=== PATIENT | female | born 1930 | race Caucasian/White ===

== ENCOUNTER 2017-05-13 16:25 | Inpatient (IN) ==
[2017-05-13] MEDS ORDERED: SODIUM CHLORIDE 0.9% 500 ML IV STA (17:30)
--- NOTE | 2017-05-13 17:53 | Emergency Department Note ---
Emma Boswell Mantricia, am scribing for, and in the presence of, Tj Gama MD 17:52. Lanette Boswell Phillip K, MD, personally performed the services described in this documentation, ascribed by Isabella Carter in my presence, and it is both accurate and complete [id number] . Arrival - Arrival ED Nursing Triage Note: Family states that pt has been altered for the past 3-4 months. Family states that the pt has recurring UTI. Family states that the pt is normally alert minus the past 3-4 months. Mode of Arrival: Stretcher Limitations: No Limitations Source: Patient - History of Present Illness Onset (ago): day(s) Consistency: constant <Tj Gama - Last Filed: 05/13/17 17:53> <Srini Aviles - Last Filed: 05/13/17 19:56> - Arrival Chief Complaint: Altered Mental Status Stated Complaint: Altered Mental Status Time Seen by Provider: 05/13/17 17:16 - History of Present Illness HPI Narrative: Pt is an 86 y/o white female arriving to ED by EMS from [facility] for evaluation of AMS that onset about 3-months ago but has worsened within the last week. Family reports that since UTI, pt has been almost nonresponsive and sleeping "all day". Family also reports that pt is not able to finish her sentences before falling asleep again. Because of pt's recent confusion, she was taken off most of her medications. Pt has also experiencing lowe blood pressure. 2 days ago pt's blood pressure was 90/40. At time of consult, pt's blood pressure is 135/42. Pt had a MRI in March but no signs of CVA. No other complaints were reported to ED. (Isabella Carter) Pt is an 86 y/o white female arriving to ED by EMS from [facility] for evaluation of AMS that onset about 3-months ago but has worsened within the last week. Family reports that since UTI, pt has been almost nonresponsive and sleeping "all day". Family also reports that pt is not able to finish her sentences before falling asleep again. Because of pt's recent confusion, she was taken off most of her medications. Pt has also experiencing lowe blood pressure. 2 days ago pt's blood pressure was 90/40. At time of consult, pt's blood pressure is 135/42. Pt had a MRI in March but no signs of CVA. No other complaints were reported to ED. (Tj Gama) Allergies/Adverse Reactions: Allergies Allergy/AdvReac Type Severity Reaction Status Date / Time lidocaine Allergy Unknown Unknown/Unable Verified 05/13/17 17:54 to obtain Penicillins Allergy Unknown Unknown/Unable Verified 05/13/17 17:54 to obtain acetaminophen [From Tylenol] Allergy Unknown/Unable Verified 05/13/17 17:54 to obtain azithromycin [From Zithromax] Allergy Unknown/Unable Verified 05/13/17 17:54 to obtain cephalexin [From Keflex] Allergy Unknown/Unable Verified 05/13/17 17:54 to obtain ciprofloxacin [From Cipro] Allergy Unknown/Unable Verified 05/13/17 17:54 to obtain diazepam [From Valium] Allergy Unknown/Unable Verified 05/13/17 17:54 to obtain doxycycline Allergy Unknown/Unable Verified 05/13/17 17:54 to obtain famotidine [From Pepcid] Allergy Unknown/Unable Verified 05/13/17 17:54 to obtain fexofenadine [From Twyla] Allergy Unknown/Unable Verified 05/13/17 17:54 to obtain Iodinated Contrast Media - Allergy Unknown/Unable Verified 05/13/17 17:54 Oral and to obtain latex Allergy Unknown/Unable Verified 05/13/17 17:54 to obtain Peanut Butter Allergy Unknown/Unable Verified 05/13/17 17:54 to obtain Psyllium [From Konsyl] Allergy Unknown/Unable Verified 05/13/17 17:54 to obtain scopolamine Allergy Unknown/Unable Verified 05/13/17 17:54 to obtain Sulfa (Sulfonamide Allergy Unknown/Unable Verified 05/13/17 17:54 Antibiotics) to obtain sulfamethoxazole Allergy Unknown/Unable Verified 05/13/17 17:54 [From Bactrim] to obtain tramadol Allergy Unknown/Unable Verified 05/13/17 17:54 to obtain trimethoprim [From Bactrim] Allergy Unknown/Unable Verified 05/13/17 17:54 to obtain tanafed dp Allergy Unknown Unknown/Unable Uncoded 05/13/17 17:54 to obtain arthritis pain relief Allergy Unknown/Unable Uncoded 05/13/17 17:54 to obtain Home Medications: Home Medications Medication Instructions Recorded Confirmed Type Ascorbic Acid 500 mg PO DAILY 05/13/17 05/13/17 History Aspirin Chew Tab 81 mg PO DAILY 05/13/17 05/13/17 History Benzocaine/Menthol [Chloraseptic 1 lozenge PO Q2H PRN 05/13/17 05/13/17 History Lozenge] Cholecalciferol (Vitamin D3) 5,000 unit PO DAILY 05/13/17 05/13/17 History [Vitamin D3] Cyanocobalamin Tab [Vitamin B12 500 mcg PO DAILY 05/13/17 05/13/17 History Tab] Docusate Sodium 100 mg PO DAILY 05/13/17 05/13/17 History Donepezil HCl 5 mg PO BEDTIME 05/13/17 05/13/17 History Ferrous Sulfate Tab [Feosol 325 mg PO DAILY 05/13/17 05/13/17 History Original Tab] Ibuprofen [Children's Ibuprofen] 20 ml PO Q6H PRN 05/13/17 05/13/17 History Lactobacillus Acidophilus 3 mg PO DAILY 05/13/17 05/13/17 History [Probiotic Acidophilus] Lactulose 20 gm PO Q3D 05/13/17 05/13/17 History Levothyroxine Tab [Synthroid Tab] 25 mcg PO DAILY 05/13/17 05/13/17 History Promethazine HCl 25 mg PO Q6H PRN 05/13/17 05/13/17 History Simethicone [Gas Relief] 180 mg PO Q12H PRN 05/13/17 05/13/17 History Review of System - Review of System ROS unobtainable: due to mental status 12 point system: reviewed and no additional remarkable complaints except as stated <Tj Gama - Last Filed: 05/13/17 17:53> Medical,Surgical,& Family Hx - Medical History Cardio: History of: Hypertension Psychological: History of: Depression Endocrine: History of: Diabetes Mellitus (NIDDM), Thyroid Disorder Genitourinary: History of: Recurring Urinary Tract Infections Musculoskeletal: History of: Osteoporosis - Social History Smoking Status: Never smoker Frequency of Alcohol Use: None Type of Drug Use: None <Tj Gama - Last Filed: 05/13/17 17:53> Exam - General Exam limited due to: other (AMS) General appearance: lethargic - Head Head exam: Present: atraumatic, normocephalic, normal inspection - Eye Eye exam: Present: normal appearance, PERRL (small but reactive), EOMI - ENT ENT exam: Present: normal exam, normal oropharynx, mucous membranes dry, TM's normal bilaterally, normal external ear exam - Neck Neck exam: Present: normal inspection, full ROM, trachea midline. Absent: tenderness - Chest Chest inspection: Present: normal inspection, symmetric chest wall rise. Absent : tenderness - Respiratory Respiratory exam: Present: normal lung sounds bilaterally - Cardiovascular Cardiovascular exam: Present: regular rate, normal rhythm, normal heart sounds - Abdominal Exam Abdominal exam: Present: soft, tenderness (left sided), normal bowel sounds. Absent: distention, guarding, rebound - Extremities Exam Extremities exam: Present: normal inspection, full ROM, normal capillary refill. Absent: tenderness, pedal edema - Back Exam Back exam: Present: normal inspection, full ROM. Absent: tenderness - Neurological Exam Neurological exam: Present: alert, oriented X3, CN II-XII intact, normal gait, reflexes normal - Psychiatric Psychiatric exam: Present: normal affect, normal mood - Skin Skin exam: Present: warm, dry, intact, normal color <Tj Gama - Last Filed: 05/13/17 17:53> Vital Signs: Vital Signs Temperature 95.6 F L 05/13/17 16:25 Pulse Rate 78 05/13/17 19:00 Respiratory Rate 13 05/13/17 19:00 Blood Pressure 127/59 05/13/17 19:00 O2 Sat by Pulse Oximetry 100 05/13/17 19:00 Course <Tj Gama - Last Filed: 05/13/17 17:53> - Consultations Time: 19:43 <Srini Aviles - Last Filed: 05/13/17 19:56> - Consultations Consultation #1: Dr. Carlton Tijerina will come evaluate the patient for the admission to the hospitalist service. (Srini Aviles) Results <Tj Gama - Last Filed: 05/13/17 17:53> - Labs CBC & BMP: 05/13/17 18:40 05/13/17 18:40 Lab Results: I have reviewed the patients labs <Srini Aviles - Last Filed: 05/13/17 19:56> - Labs Labs: Lab Results WBC 9.0 T/CUMM (4-12) 05/13/17 18:40 RBC 3.64 MC/CUMM (3.8-5.5) L 05/13/17 18:40 Hgb 10.3 GM/DL (12.0-16.0) L 05/13/17 18:40 Hct 30.4 VOL% (35.7-47.0) L 05/13/17 18:40 MCV 83.5 FL (87-102) L 05/13/17 18:40 MCH 28 PG (27-34) 05/13/17 18:40 MCHC 33.9 GM/DL (32-36) 05/13/17 18:40 RDW 16.2 % (9.3-17.3) 05/13/17 18:40 Plt Count 151 T/CUMM (130-400) 05/13/17 18:40 MPV 8.5 FL (9.6-12.0) L 05/13/17 18:40 Neut % (Auto) 83.6 % (38.7-73.9) H 05/13/17 18:40 Lymph % (Auto) 4.5 % (21.3-54.2) L 05/13/17 18:40 Bureau % (Auto) 10.4 % (1.7-12.7) 05/13/17 18:40 Eos % (Auto) 1.0 % (0.00-10.9) 05/13/17 18:40 Baso % (Auto) 0.1 % (0.0-0.8) 05/13/17 18:40 Neut # (Auto) 7.5 10*3/uL (1.4-7.4) H 05/13/17 18:40 Lymph # (Auto) 0.4 10*3/uL (1.4-4.0) L 05/13/17 18:40 Bureau # (Auto) 0.9 10*3/uL (0.11-0.8) H 05/13/17 18:40 Eos # (Auto) 0.1 10*3/uL (0.0-0.87) 05/13/17 18:40 Baso # (Auto) 0.0 10*3/uL (0.0-0.2) 05/13/17 18:40 Total Counted 100 05/13/17 18:40 Immature Gran % 0.4 % 05/13/17 18:40 Nucleated RBC % 0.0 /100WBC 05/13/17 18:40 Immature Gran # 0.04 # 05/13/17 18:40 Segmented Neutrophils 87 % (50-85) H 05/13/17 18:40 Band Neutrophils 1 % (0-10) 05/13/17 18:40 Lymphocytes 5 % (20-55) L 05/13/17 18:40 Monocytes 5 % (2-15) 05/13/17 18:40 Eosinophils 1 % (0-10) 05/13/17 18:40 Basophils 1.0 % (0.0-0.8) H 05/13/17 18:40 Nucleated RBCs # 0.00 10*3/uL 05/13/17 18:40 Platelet Estimate Adequate 05/13/17 18:40 Robbins Cells 1+ 05/13/17 18:40 Schistocytes 1+ 05/13/17 18:40 Sodium 139 MMOL/L (136-145) 05/13/17 18:40 Potassium 5.0 MMOL/L (3.5-5.1) 05/13/17 18:40 Chloride 117 MMOL/L (98-107) H 05/13/17 18:40 Carbon Dioxide 9 MMOL/L (21-32) L 05/13/17 18:40 Anion Gap 18.0 MMOL/L (5.0-15.0) H 05/13/17 18:40 BUN 93 MG/DL (7-18) H 05/13/17 18:40 Creatinine 2.20 MG/DL (0.55-1.02) H 05/13/17 18:40 GFR Calculation 21 ML/MIN 05/13/17 18:40 BUN/Creatinine Ratio 42.00 RATIO (6.00-20.00) H 05/13/17 18:40 Glucose 81 MG/DL (74-106) 05/13/17 18:40 Calculated Osmolality 304.5 MOS/KG (273-304) H 05/13/17 18:40 Calcium 9.1 MG/DL (8.5-10.1) 05/13/17 18:40 Magnesium 2.7 MG/DL (1.8-2.4) H 05/13/17 18:40 Total Bilirubin < 0.39 MG/DL (0.2-1.0) 05/13/17 18:40 AST 215 U/L (0-37) H 05/13/17 18:40 ALT 552 U/L (13-56) H 05/13/17 18:40 Alkaline Phosphatase 212 U/L (45-117) H 05/13/17 18:40 Troponin I < 0.015 NG/ML (0.00-0.045) 05/13/17 18:40 Total Protein 6.5 G/DL (6.4-8.3) 05/13/17 18:40 Albumin 3.3 G/DL (3.4-5.0) L 05/13/17 18:40 Globulin 3.2 G/DL (2.3-3.5) 05/13/17 18:40 Albumin/Globulin Ratio 1.0 RATIO (1.1-2.2) L 05/13/17 18:40 Urine Color Rayna (Yellow) 05/13/17 18:40 Urine Appearance Cloudy (Clear) 05/13/17 18:40 Urine pH 8.0 (4.5-8.0) 05/13/17 18:40 Ur Specific [place] 1.010 (1.001-1.035) 05/13/17 18:40 Urine Protein 100 MG/DL 05/13/17 18:40 Urine Glucose (UA) Negative mg/dL (Negative) 05/13/17 18:40 Urine Ketones Negative mg/dL (Negative) 05/13/17 18:40 Urine Blood Moderate mg/dL (Negative) 05/13/17 18:40 Urine Nitrate Positive (Negative) H 05/13/17 18:40 Urine Bilirubin Negative mg/dL (Negative) 05/13/17 18:40 Urine Urobilinogen < 2.0 EU/DL (0.2-1.0) H 05/13/17 18:40 Urine Leukocytes Large Jonny/ul (Negative) H 05/13/17 18:40 Urine RBC 319 /HPF (0-4) 05/13/17 18:40 Urine WBC 355 /HPF (0-6) 05/13/17 18:40 Urine WBC Clumps Many /HPF (<1) 05/13/17 18:40 Urine Bacteria Many /HPF (Few) 05/13/17 18:40 Urine Mucus Occasional /LPF (Occasional) 05/13/17 18:40 Ur Culture Indicated? Results to follow 05/13/17 18:40 Urine Opiates Screen Negative (Negative) 05/13/17 18:40 Ur Barbiturates Screen Negative (Negative) 05/13/17 18:40 Ur Phencyclidine Scrn Negative (Negative) 05/13/17 18:40 U Amphetamine/Methamph Negative (Negative) 05/13/17 18:40 U Benzodiazepines Scrn Negative (Negative) 05/13/17 18:40 U Cocaine Metab Screen Negative (Negative) 05/13/17 18:40 U Cannabinoids Screen Negative (Negative) 05/13/17 18:40 (Srini Aviles) Disposition <Tj Gama - Last Filed: 05/13/17 17:53> Case discussed with: patient, patient's family Time of Disposition: 19:56 <Srini Aviles - Last Filed: 05/13/17 19:56> Clinical Impression: UTI (urinary tract infection), Moderate dehydration, Altered mental status Disposition: Still a Patient Condition: Stable Instructions: Altered Mental Status (ED)
--- NOTE | 2017-05-13 18:34 | XRay Report ---
XR chest 1V portable Indication: Altered mental status. Chest one view: No comparison. Heart size is normal. Aorta is tortuous. Mediastinal contours unremarkable. Diffusely coarsened interstitial lung markings noted with central scarring and some scattered granulomata. However, no discrete infiltrate is seen. Pleural spaces are clear. Surgical clips right axilla. Impression: Senile lung changes. Scattered calcified granulomata. No acute cardiopulmonary disease. PROCEDURE INTERPRETED AT [facility] DEPARTMENT OF RADIOLOGY Final Report Signed by: Carlton Valenzuela M.D.
[2017-05-13 18:47] LABS: Basophils % 0.1 % (0.0-0.8); Eosinophils # 0.1 10*3/uL (0.0-0.87); Hematocrit 30.4 VOL% (35.7-47.0); Hemoglobin 10.3 GM/DL (12.0-16.0); Immature Granulocytes % 0.4 %; Immature Granulocytes Absolute 0.04 #; Lymphocytes # 0.4 10*3/uL (1.4-4.0); Lymphocytes % 4.5 % (21.3-54.2); Mean Corpuscular HGB Conc 33.9 GM/DL (32-36); Mean Corpuscular Hemoglobin 28 PG (27-34); Mean Corpuscular Volume 83.5 FL (87-102); Mean Platelet Volume 8.5 FL (9.6-12.0); Monocytes # 0.9 10*3/uL (0.11-0.8); Monocytes % 10.4 % (1.7-12.7); Neutrophils # 7.5 10*3/uL (1.4-7.4); Neutrophils % 83.6 % (38.7-73.9); Platelet Count 151 T/CUMM (130-400); Red Blood Count 3.64 MC/CUMM (3.8-5.5); Red Cell Distribution Width 16.2 % (9.3-17.3)
[2017-05-13 19:07] LABS: Band Neutrophils 1 % (0-10); Eosinophils 1 % (0-10); Lymphocytes 5 % (20-55); Segmented Neutrophils 87 % (50-85); Total Cells Counted 100
[2017-05-13 19:09] LABS: Burr Cells 1+; Platelet Estimate Adequate; Schistocytes 1+
[2017-05-13 19:15] LABS: Apearance,Urine CLOUDY (Clear); Bacteria,Urine Many /HPF (Few); Bilirubin,Urine Negative (Negative); Blood, Urine Moderate mg/dL (Negative); Glucose,Urine (UA) Negative (Negative); Ketones,Urine Negative (Negative); Mucus,Urine Occasional /LPF (Occasional); Nitrite,Urine Positive (Negative); Protein,Urine 100 MG/DL; RBC,Urine 319 /HPF (0-4); Urine Color Amber (Yellow); Urine Urobilinogen < 2.0 EU/DL (0.2-1.0); WBC,Urine 355 /HPF (0-6)
[2017-05-13 19:26] LABS: Alanine Aminotransferase 552 U/L (13-56); Albumin 3.3 G/DL (3.4-5.0); Alkaline Phosphatase 212 U/L (45-117); Aspartate Amino Transferase 215 U/L (0-37); Bilirubin,Total < 0.39 MG/DL (0.2-1.0); Blood Urea Nitrogen 93 MG/DL (7-18); Calcium 9.1 MG/DL (8.5-10.1); Glucose 81 MG/DL (74-106); Magnesium 2.7 MG/DL (1.8-2.4); Osmolality,Calculated 304.5 MOS/KG (273-304); Sodium 139 MMOL/L (136-145); Total Protein 6.5 G/DL (6.4-8.3); Troponin I Only < 0.015 NG/ML (0.00-0.045)
[2017-05-13 19:30] LABS: Barbiturates Screen,Urine Negative (Negative); Benzodiazepines Screen,Urine Negative (Negative); Cannabinoid Screen,Urine Negative (Negative); Opiate Screen,Urine Negative (Negative); Phencyclidine Screen,Urine Negative (Negative)
[2017-05-13] MEDS ORDERED: BENZOCAINE/MENTHOL LOZENGE 18/BOX PO PRN (20:35)
[2017-05-13] MEDS ORDERED: SIMETHICONE CHEW 125 MG TABLET PO PRN (20:35)
--- NOTE | 2017-05-13 20:38 | Hospitalist History & Physical ---
Assessment and Plan (1) Metabolic acidosis Status: Acute Current Visit: Yes (2) Increase transaminases Status: Acute Current Visit: Yes (3) Acute kidney injury Status: Acute Current Visit: Yes (4) UTI (urinary tract infection) Status: Acute Current Visit: Yes (5) Moderate dehydration Status: Acute Current Visit: Yes (6) Altered mental status Status: Acute Assessment and plan: Our plan for this patient will be admission to our service. Going to hydrate her up with some added bicarb. Going to treat her urinary tract infection with antibiotics. The choice is complex because patient has multiple drug allergies although her son-in-law reports that it was more side effects than true allergies. He is a pharmacist. I am going to select aztreonam. Depending on the culture results this might have to be adjusted. Her transaminases are elevated I do not know why. I will order liver ultrasound from the morning. Will continue home meds as appropriate they did a urine drug screen per the family's request and it was negative. Current Visit: Yes History of Present Illness Chief complaint: Altered mental status History of present illness: Ms. Townsend is a 86 year old female with past medical history significant for Mni re's disease depression and vertigo who was transferred to our hospital from her snf at the request of the family. Patient's family reports that normally she can converse and talk to you appropriately. Family started noticing last week she could not finish her sentences and she was losing her train of thought. She is more or less wheelchair bound and has to use a Alex lift to get her placed in a wheelchair. Patient has been treated for urinary tract infection with IV antibiotics at the snf. Urine is still appears infected. Patient has multiple drug allergies. I was consulted for admission. I am admitting her through the emergency room. Home Medications Medication Instructions Recorded Confirmed Type Ascorbic Acid 500 mg PO DAILY 05/13/17 05/13/17 History Aspirin Chew Tab 81 mg PO DAILY 05/13/17 05/13/17 History Benzocaine/Menthol [Chloraseptic 1 lozenge PO Q2H PRN 05/13/17 05/13/17 History Lozenge] Cholecalciferol (Vitamin D3) 5,000 unit PO DAILY 05/13/17 05/13/17 History [Vitamin D3] Cyanocobalamin Tab [Vitamin B12 500 mcg PO DAILY 05/13/17 05/13/17 History Tab] Docusate Sodium 100 mg PO DAILY 05/13/17 05/13/17 History Donepezil HCl 5 mg PO BEDTIME 05/13/17 05/13/17 History Ferrous Sulfate Tab [Feosol 325 mg PO DAILY 05/13/17 05/13/17 History Original Tab] Ibuprofen [Children's Ibuprofen] 20 ml PO Q6H PRN 05/13/17 05/13/17 History Lactobacillus Acidophilus 3 mg PO DAILY 05/13/17 05/13/17 History [Probiotic Acidophilus] Lactulose 20 gm PO Q3D 05/13/17 05/13/17 History Levothyroxine Tab [Synthroid Tab] 25 mcg PO DAILY 05/13/17 05/13/17 History Promethazine HCl 25 mg PO Q6H PRN 05/13/17 05/13/17 History Simethicone [Gas Relief] 180 mg PO Q12H PRN 05/13/17 05/13/17 History Allergies Allergy/AdvReac Type Severity Reaction Status Date / Time lidocaine Allergy Unknown Unknown/Unable Verified 05/13/17 17:54 to obtain Penicillins Allergy Unknown Unknown/Unable Verified 05/13/17 17:54 to obtain acetaminophen [From Tylenol] Allergy Unknown/Unable Verified 05/13/17 17:54 to obtain azithromycin [From Zithromax] Allergy Unknown/Unable Verified 05/13/17 17:54 to obtain cephalexin [From Keflex] Allergy Unknown/Unable Verified 05/13/17 17:54 to obtain ciprofloxacin [From Cipro] Allergy Unknown/Unable Verified 05/13/17 17:54 to obtain diazepam [From Valium] Allergy Unknown/Unable Verified 05/13/17 17:54 to obtain doxycycline Allergy Unknown/Unable Verified 05/13/17 17:54 to obtain famotidine [From Pepcid] Allergy Unknown/Unable Verified 05/13/17 17:54 to obtain fexofenadine [From Twyla] Allergy Unknown/Unable Verified 05/13/17 17:54 to obtain Iodinated Contrast Media - Allergy Unknown/Unable Verified 05/13/17 17:54 Oral and to obtain latex Allergy Unknown/Unable Verified 05/13/17 17:54 to obtain Peanut Butter Allergy Unknown/Unable Verified 05/13/17 17:54 to obtain Psyllium [From Konsyl] Allergy Unknown/Unable Verified 05/13/17 17:54 to obtain scopolamine Allergy Unknown/Unable Verified 05/13/17 17:54 to obtain Sulfa (Sulfonamide Allergy Unknown/Unable Verified 05/13/17 17:54 Antibiotics) to obtain sulfamethoxazole Allergy Unknown/Unable Verified 05/13/17 17:54 [From Bactrim] to obtain tramadol Allergy Unknown/Unable Verified 05/13/17 17:54 to obtain trimethoprim [From Bactrim] Allergy Unknown/Unable Verified 05/13/17 17:54 to obtain tanafed dp Allergy Unknown Unknown/Unable Uncoded 05/13/17 17:54 to obtain arthritis pain relief Allergy Unknown/Unable Uncoded 05/13/17 17:54 to obtain Medical,Surgical,& Family Hx - Medical History Cardio: History of: Hypertension Psychological: History of: Depression Endocrine: History of: Diabetes Mellitus (NIDDM), Thyroid Disorder Genitourinary: History of: Recurring Urinary Tract Infections Musculoskeletal: History of: Osteoporosis - Surgical History Additional Surgical History: Mastectomy, cholecystectomy, bilateral tubal ligation - Family History Family History: Reports;: Family Cancer, Family Diabetes - Social History Smoking Status: Never smoker Frequency of Alcohol Use: None Type of Drug Use: None ROS unobtainable: due to delirium Exam - Constitutional Vitals: Period Temp Pulse Resp BP Sys/Martínez Pulse Ox Last 24 Hr 95.6 F-95.6 F 71-78 13-19 112-127/48-88 100-100 General appearance: normal weight - Head Head exam: Present: normal inspection - Eye Pupils: Present: ALEXANDRO - Neck Neck exam: Present: normal inspection - Respiratory Respiratory exam: Present: clear to auscultation bilaterally - Cardiovascular Cardiovascular exam: Present: regular rate and rhythm - GI/Abdominal GI/Abdominal exam: Present: normal bowel sounds, tenderness (Mild) - Extremities Exam Extremities exam: Present: normal inspection - Back Exam Back exam: Present: normal inspection - Neurological Exam Neurological exam: Present: altered - Skin Skin exam: Present: normal color Results - Labs CBC & BMP: 05/13/17 18:40 05/13/17 18:40
[2017-05-13] MEDS ORDERED: LACTULOSE 20 GM/30 ML UDCUP PO SCH (21:00)
[2017-05-13] MEDS ORDERED: DONEPEZIL 5 MG TABLET PO SCH (21:00)
[2017-05-13] MEDS ORDERED: AZTREONAM 1,000 MG in SODIUM CHLORIDE 0.9% 100 ML IV ONE (22:00)
[2017-05-13] MEDS ORDERED: SODIUM BICARB INJ 100 MEQ in STERILE WATER INJ 1,000 ML IV SCH (22:00)
[2017-05-14] MEDS: ENOXAPARIN 30 MG/0.3 ML SYRINGE SUBCUT SCH ×2 (01:45→21:57)
[2017-05-14] MEDS: AZTREONAM 500 MG in SODIUM CHLORIDE 0.9% 100 ML IV SCH ×2 (05:25→18:00)
[2017-05-14 06:09] LABS: Basophils % 0.1 % (0.0-0.8); Eosinophils % 0.6 % (0.00-10.9); Hematocrit 26.2 VOL% (35.7-47.0); Hemoglobin 8.7 GM/DL (12.0-16.0); Immature Granulocytes % 0.6 %; Immature Granulocytes Absolute 0.04 #; Lymphocytes # 0.4 10*3/uL (1.4-4.0); Lymphocytes % 5.5 % (21.3-54.2); Mean Corpuscular HGB Conc 33.2 GM/DL (32-36); Mean Corpuscular Hemoglobin 27 PG (27-34); Mean Corpuscular Volume 82.4 FL (87-102); Mean Platelet Volume 9.3 FL (9.6-12.0); Monocytes # 0.8 10*3/uL (0.11-0.8); Monocytes % 11.3 % (1.7-12.7); Neutrophils # 5.9 10*3/uL (1.4-7.4); Neutrophils % 81.9 % (38.7-73.9); Platelet Count 140 T/CUMM (130-400); Red Blood Count 3.18 MC/CUMM (3.8-5.5); Red Cell Distribution Width 16.3 % (9.3-17.3); White Blood Count 7.2 T/CUMM (4-12)
[2017-05-14 06:35] LABS: Band Neutrophils 1 % (0-10); Eosinophils 1 % (0-10); Lymphocytes 2 % (20-55); Platelet Estimate Normal; Segmented Neutrophils 87 % (50-85); Total Cells Counted 100
[2017-05-14 06:36] LABS: Burr Cells Slight; Hypochromasia 1+; Ovalocytes Slight
[2017-05-14 06:40] LABS: Albumin 2.8 G/DL (3.4-5.0); Bilirubin,Total 0.5 MG/DL (0.2-1.0); Osmolality,Calculated 302.5 MOS/KG (273-304); Potassium 4.7 MMOL/L (3.5-5.1); Total Protein 5.6 G/DL (6.4-8.3)
[2017-05-14] MEDS ORDERED: LEVOTHYROXINE 25 MCG TABLET PO SCH (07:00)
--- NOTE | 2017-05-14 08:12 | EKG Report ---
Stationary ECG Study [facility] ER Test Date: 05/13/2017 7:37:18 PM Pat Name: JANINA RINALDI Department: Room: 223 Gender: F Community Health Director: RIMA : 1930 Requested by: Tj Echols Order Number: [id number] Reading MD: MANINDER VILLATORO Intervals [place] Rate: 79 P: 86 PA: 195 QRS: -14 QRSD: 82 T: 72 QT: 389 QTc: 424 Interpretive Statements SINUS RHYTHM POSSIBLE LEFT ATRIAL ENLARGEMENT LOW QRS VOLTAGE IN PRECORDIAL LEADS Electronically Signed On 05-14-17 08:35:14 CDT by MANINDER VILLATORO [email or web address]
[2017-05-14] MEDS ORDERED: ASCORBIC ACID 500 MG TABLET PO SCH (09:00)
[2017-05-14] MEDS ORDERED: LACTOBACILLUS ACIDOPHILUS/BULGARICUS CAPLET PO SCH (09:00)
[2017-05-14] MEDS ORDERED: DOCUSATE SODIUM 100 MG CAPSULE PO SCH (09:00)
[2017-05-14] MEDS ORDERED: FERROUS SULFATE 325 MG TABLET PO SCH (09:00)
[2017-05-14] MEDS ORDERED: ASPIRIN CHEW 81 MG TABLET PO SCH (09:00)
[2017-05-14] MEDS ORDERED: CYANOCOBALAMIN 500 MCG TABLET PO SCH (09:00)
--- NOTE | 2017-05-14 09:05 | Ultrasound Report ---
Exam: US liver Date: 05/14/2017 4:00 AM Comparison: None Indication: Elevated liver function tests Technique:[Multiple transabdominal real-time scans were obtained of the right upper quadrant. Color-flow scans obtained. Ultrasound images were captured and stored.] Findings: Prior cholecystectomy with CBD normal in size measuring 4.6 mm. The liver is normal in size with no definite masses. The right kidney measures 93 mm in length with 24 mm simple appearing upper pole renal cyst. No hydronephrosis. The pancreas and aorta including the aortic bifurcation are obscured by bowel gas. Color flow documented in the IVC and portal vein. Impression: Prior cholecystectomy with normal sized CBD. 24 mm simple appearing right upper pole renal cyst. The pancreas and aorta are obscured by bowel gas. PROCEDURE INTERPRETED AT [facility] DEPARTMENT OF RADIOLOGY Final Report Signed by: Dr. Sury Rebollar
--- NOTE | 2017-05-14 09:37 | Hospitalist Progress Note ---
Hospitalist: Subjective Interval history: Pt completely nonverbal and encephalopathic. HCO3 9. BS 52. 2 amps of sodium bicarbonate given and 1 amp of D50 given. Repeat blood sugars are in 200's. Still sedated. Snoring. ABG 7.1/ CO2 20. Exam - Constitutional Vitals: Period Temp Pulse Resp BP Sys/Martínez Pulse Ox Last 24 Hr 95.6 F-97.2 F 71-100 13-20 111-130/43-88 94-100 Exam: GEN: Sedated, unarousable, snoring, ill appearing CV: RRR no M LUNGS:CTAB diminished at the bases, nonlabored ABD: Soft, hypoactive bowel sounds, nondistended EXT: Warm no c/c/e Results - Labs CBC & BMP: 05/14/17 05:38 05/14/17 05:38 - Impressions (1) Sepsis due to acute UTI/ cystitis (POA) - IV aztreonam. F/U Ucx and Blood culture (2) Acute renal failure likely due to dehydration with Metabolic acidosis Status: Acute Current Visit: Yes - Cont bicarbonate drip - Lactic acid now and repeat in 3 hours - s/p bicarbonate 2 amps (3) Increase liver transaminases- improving. Probably due to sepsis Status: Acute Current Visit: Yes - RUQ U/S showed "Prior cholecystectomy with normal sized CBD. 24 mm simple appearing right upper pole renal cyst. The pancreas and aorta are obscured by bowel gas." - Check viral hepatitis panel - avoid hepatotoxic agents - Coags within normal limits (4) Acute metabolic and toxic encephalopathy likely due to sepsis and renal failure with uremia and hyperammonemia Status: Acute Current Visit: Yes - Place bowel management system. Change Lactulose to enemas - Check TSH, Vitamin B12, treatment of above. (5) History of hypothyroidism - Check TSH. On synthroid but may need to change to IV (6) Elevated lipase - Per daughter, pt was complaining of abd pain prior to hospitalization. - NPO for now - Recheck amylase and lipase in am - Check FLP DVT prophylaxis: Lovenox GI prophylaxis: Protonix PT/OT/ST consult D/W nurse, pt, and daughter. 66 minutes of critical care time spent with this patient. Guarded to poor prognosis overall. Specialty Discharge - Follow Up or Referrals
[2017-05-14] MEDS: PANTOPRAZOLE 40 MG VIAL IV SCH (10:43)
[2017-05-14] MEDS: DESITIN 4OZ/NYSTATIN 15 GRAM MIXTURE PASTE TOP SCH ×2 (10:43→21:57)
[2017-05-14] MEDS: SODIUM BICARB INJ 100 MEQ in DEXTROSE 5% 1,000 ML IV SCH ×2 (11:17→18:00)
[2017-05-14 11:26] LABS: INR 1.1; PT Patient Result 11.7 SECS
[2017-05-14 11:28] LABS: Partial Thromboplastin Time 51.9 SECS (0-40)
[2017-05-14 11:29] LABS: ABG Base Excess -19.2 MMOL/L (-2.5-2.5); ABG HCO3 10.1 MMOL/L (20-26); ABG Oxygen Saturation 98.3 % (95-100); ABG PCO2 29.1 MM HG (35-48); ABG TCO2 8.9 MMOL/L (23-27)
[2017-05-14] MEDS ORDERED: SODIUM BICARBONATE 50 MEQ/50 ML SYRINGE IV ONE (11:41)
[2017-05-14 11:55] LABS: Free T4 (Free Thyroxine) 1.13 NG/DL (0.76-1.46); Thyroid Stimulating Hormone 3.2 uIU/ml (0.358-3.74)
[2017-05-14] MEDS ORDERED: DEXTROSE 50% 25 GM/50 ML VIAL IV ONE (11:56)
[2017-05-14] MEDS ORDERED: DEXTROSE 50% 25 GM/50 ML SYRINGE IV ONE (12:00)
--- NOTE | 2017-05-14 13:56 | CT Report ---
Referring physician: Karely Gordon MD EXAM: CT abdomen and pelvis without contrast DATE: 05/14/2017 COMPARISON: 11/27/2011 REASON: Generalized abdominal pain, acidosis TECHNIQUE: Axial images of the abdomen and pelvis were obtained without the use of contrast. Coronal and sagittal reformatted images were also provided. Total DLP is 337.30 mGy*cm. FINDINGS: The heart is enlarged with arterial calcifications and calcifications in the aortic and mitral valves. Progressive atelectasis/infiltration at the lung bases, especially the in the left lower lobe. Streak artifact limits evaluation abdomen due to the underaeration use arms. The liver is normal in size with no masses or dilated ducts in patient with prior cholecystectomy. The spleen is normal in size. 18 mm calcified splenic artery aneurysm which measured 12 mm on the previous exam. No evidence of adjacent hemorrhage. No obvious pancreatic pathology is identified in the adrenal glands are stable in appearance. Bilateral cortical scarring in the kidneys with persistent multiple probable renal cysts. 8.8 mm indeterminate midpole hyperdense finding. 2 mm right upper pole renal calculus with no definite ureteral calculi. Calcification in the wall of the nondilated abdominal aorta. Without contrast it is difficult to exclude possible lymphadenopathy in the paracaval location. No significant dilatation of the small bowel. Diverticulosis of colon with increased fecal material. Limited evaluation of the bowel without oral contrast but there is no evidence of diverticulitis, appendicitis, free air, or free fluid. No definite pelvic masses. Singletary catheter with bladder wall thickening. Levoscoliosis of the lumbar spine with degenerative changes. IMPRESSION: Cardiomegaly with diffuse arterial calcifications and calcification in the aortic and mitral valves. Progressive atelectasis/infiltration especially the left lower lobe. Prior cholecystectomy. Larger 18 mm calcified splenic artery aneurysm with no evidence of definite leakage. Cortical scarring in the kidneys with multiple probable renal cysts. More indeterminate 8.8 mm hyperdense finding in the midpole of the left kidney. Renal ultrasound recommended to exclude possible solid mass. 2 mm right upper pole renal calculus with no definite ureteral calculi. Without contrast it is difficult to exclude possible lymphadenopathy in the pericaval/upper abdomen location. Diverticulosis of the colon with increased fecal material. Singletary catheter in urinary bladder with nonspecific bladder wall thickening. The CT exam was performed using one or more of the following dose reduction techniques: Automated exposure control and adjustment of the mA and/or kV according to patient size. PROCEDURE INTERPRETED AT [facility] DEPARTMENT OF RADIOLOGY Final Report Signed by: Dr. Sury Rebollar
--- NOTE | 2017-05-14 13:59 | CT Report ---
History: Decreased level of consciousness Date: 05/14/2017 Study: CT head without contrast Comparison exam: No previous Transaxial CT sections were obtained through the head without IV contrast. This CT exam was performed using one or more the following dose reduction techniques: Automated exposure control, adjustment of the MA and/or KV according to patient size, or use of iterative reconstruction technique. The ventricles are midline in position without evidence of hydrocephalus. There is mild diffuse cerebral atrophy. There is no mass or parenchymal hemorrhage. There is no gross CT evidence of acute cortical stroke. There is no acute extra-axial hematoma. There is a small amount of ill-defined low density in the periventricular white matter without mass effect compatible with changes of small vessel disease. There is no extra-axial hematoma. There is some focal encephalomalacia involving the inferior aspect of the left frontal lobe which could be related to remote trauma or remote ischemia. There is a punctate chronic lacunar infarct in the right thalamus. There is no acute abnormality of the calvarium. Impression: No acute intracranial process. Chronic ischemic changes PROCEDURE INTERPRETED AT [facility] DEPARTMENT OF RADIOLOGY Final Report Signed by: Dr. Sophie Gaytan
[2017-05-14] MEDS: LACTULOSE 160 GM/240 ML BOTTLE RECTAL SCH ×2 (15:38→23:06)
--- NOTE | 2017-05-14 17:45 | Nephrology Consult Note ---
History of Present Illness Chief complaint: ARF due to volume depletion History of present illness: Ms. Townsend is a 86 year old female resident of a assisted. She was hypotensive earlier after coming in the hospital yesterday with a recurrent urinary tract infection. She has had CT scan of the abdomen and demonstrated no evidence of hydronephrosis. She has been receiving appropriate empiric antibiotics and her urine cultures currently growing gram-negative rods. She is now in the intensive care unit with a blood pressure 120 systolic making fair volumes of urine through Singletary catheter. She is poorly responsive but does mumble. Her mucous membranes are dry and her neck veins are flat. She has no edema of her extremities and her abdomen is soft. Chest is clear. Chest x-ray demonstrates no evidence of volume overload. Laboratory review shows metabolic acidosis for which she has received bicarbonate and is currently receiving bicarbonate. Serum creatinine today is 2.0 and was 2.2 yesterday. Impression #1 acute renal failure likely secondary to volume depletion #2 urinary tract infection with bacteremia most likely. #3 elevated lipase without marked change of the pancreas on CT abdomen and no peripancreatic inflammatory change noted. Plan: #1 increase IV fluid administration 125 cc/h. #2 continue bicarb repletion #3 continue empiric antibiotics No. 4 recheck amylase and lipase as is planned #5 I agree with the no CODE STATUS #6 situation was reviewed with family members at the bedside. Home Medications Medication Instructions Recorded Confirmed Type Ascorbic Acid 500 mg PO DAILY 05/13/17 05/13/17 History Aspirin Chew Tab 81 mg PO DAILY 05/13/17 05/13/17 History Benzocaine/Menthol [Chloraseptic 1 lozenge PO Q2H PRN 05/13/17 05/13/17 History Lozenge] Cholecalciferol (Vitamin D3) 5,000 unit PO DAILY 05/13/17 05/13/17 History [Vitamin D3] Cyanocobalamin Tab [Vitamin B12 500 mcg PO DAILY 05/13/17 05/13/17 History Tab] Docusate Sodium 100 mg PO DAILY 05/13/17 05/13/17 History Donepezil HCl 5 mg PO BEDTIME 05/13/17 05/13/17 History Ferrous Sulfate Tab [Feosol 325 mg PO DAILY 05/13/17 05/13/17 History Original Tab] Ibuprofen [Children's Ibuprofen] 20 ml PO Q6H PRN 05/13/17 05/13/17 History Lactobacillus Acidophilus 3 mg PO DAILY 05/13/17 05/13/17 History [Probiotic Acidophilus] Lactulose 20 gm PO Q3D 05/13/17 05/13/17 History Levothyroxine Tab [Synthroid Tab] 25 mcg PO DAILY 05/13/17 05/13/17 History Promethazine HCl 25 mg PO Q6H PRN 05/13/17 05/13/17 History Simethicone [Gas Relief] 180 mg PO Q12H PRN 05/13/17 05/13/17 History Allergies Allergy/AdvReac Type Severity Reaction Status Date / Time lidocaine Allergy Unknown Unknown/Unable Verified 05/13/17 17:54 to obtain Penicillins Allergy Unknown Unknown/Unable Verified 05/13/17 17:54 to obtain acetaminophen [From Tylenol] Allergy Unknown/Unable Verified 05/13/17 17:54 to obtain azithromycin [From Zithromax] Allergy Unknown/Unable Verified 05/13/17 17:54 to obtain cephalexin [From Keflex] Allergy Unknown/Unable Verified 05/13/17 17:54 to obtain ciprofloxacin [From Cipro] Allergy Unknown/Unable Verified 05/13/17 17:54 to obtain diazepam [From Valium] Allergy Unknown/Unable Verified 05/13/17 17:54 to obtain doxycycline Allergy Unknown/Unable Verified 05/13/17 17:54 to obtain famotidine [From Pepcid] Allergy Unknown/Unable Verified 05/13/17 17:54 to obtain fexofenadine [From Twyla] Allergy Unknown/Unable Verified 05/13/17 17:54 to obtain Iodinated Contrast Media - Allergy Unknown/Unable Verified 05/13/17 17:54 Oral and to obtain latex Allergy Unknown/Unable Verified 05/13/17 17:54 to obtain Peanut Butter Allergy Unknown/Unable Verified 05/13/17 17:54 to obtain Psyllium [From Konsyl] Allergy Unknown/Unable Verified 05/13/17 17:54 to obtain scopolamine Allergy Unknown/Unable Verified 05/13/17 17:54 to obtain Sulfa (Sulfonamide Allergy Unknown/Unable Verified 05/13/17 17:54 Antibiotics) to obtain sulfamethoxazole Allergy Unknown/Unable Verified 05/13/17 17:54 [From Bactrim] to obtain tramadol Allergy Unknown/Unable Verified 05/13/17 17:54 to obtain trimethoprim [From Bactrim] Allergy Unknown/Unable Verified 05/13/17 17:54 to obtain tanafed dp Allergy Unknown Unknown/Unable Uncoded 05/13/17 17:54 to obtain arthritis pain relief Allergy Unknown/Unable Uncoded 05/13/17 17:54 to obtain Medical,Surgical,& Family Hx - Medical History Cardio: History of: Hypertension No history of: Aneurysm, Cardiac Dysrhythmia, Cerebrovascular Disease, Congenital Heart Disease, CHF, CAD, HI, Pacemaker, PVD, Valvular Heart Disease, Cardiovascular Problems Psychological: History of: Depression No history of: Anxiety Disorders, ADHD, Behavior Problems, Bipolar Disorder, Previous Suicide Attempt, Psychiatric/Substance Abuse Tx, Schizophrenia, Violent Behavior, Psychiatric Problems Endocrine: History of: Diabetes Mellitus (NIDDM), Thyroid Disorder No history of: Dyslipidemia Genitourinary: History of: Recurring Urinary Tract Infections Musculoskeletal: History of: Osteoporosis No history of: Amputation Hematology: History of: Anemia - Surgical History Cardiac Surgeries: Patient Denies: Femoral-Popliteal Bypass Graft, Cardiac Catheterization, Cardiac Surgery, Carotid Endarterectomy, Internal Defibrillator, Vascular Access Devices Thoracic Surgeries: Patient denies;: Organ Transplant Neurologic Surgeries: Patient denies: Neurologic Surgery HEENT Surgeries: Patient denies: Carotid Endarterectomy, Eye Surgery, Tonsilectomy & Adenoidectomy Abdominal Surgeries: Patient denies: Abdominal Surgery, Splenectomy Reproductive Surgeries: Patient denies;: Genitourinary Surgery, Gynecologic Surgery Orthopedic Surgeries: Patient denies;: Implanted Devices, Orthopedic Surgery, Spinal Surgery, Total Hip Replacement, Total Knee Replacement - Family History Family History: Reports;: Family Cancer, Family Diabetes - Social History Smoking Status: Never smoker Frequency of Alcohol Use: None Type of Drug Use: None Review of Systems 12 point system: reviewed and no additional remarkable complaints except as stated Exam - Vital Signs Vital signs: Period Temp Pulse Resp BP Sys/Martínez Pulse Ox Last 24 Hr 96.9 F-97.2 F 75-100 13-20 81-152/39-108 94-100 - General Appearance General appearance: well-developed, well-nourished, appears started age EENT: ATNC Neck: no JVD, no thyromegaly, no carotid bruit, supple Respiratory: no kyphosis, no scoliosis Cardiology: no murmurs, no rub, no gallops, no edema, regular rate, regular rhythm, normal S1, normal S2 Gastrointestinal: normoactive bowel sounds Integumentary: no rash, warm and dry Neurologic: no focal deficit, no asterixis, alert and oriented x3, reflexes 2+ and symmetric, gait normal, strength 5/5 Musculoskeletal: no deformities, no erythema, no cyanosis, no clubbing Psychiatric: mood/affect appropriate, cooperative Results - Labs CBC & BMP: 05/14/17 05:38 05/14/17 05:38 Assessment and Plan - Time spent with patient Time spent with patient: Greater than 30 minutes (1) Acute kidney injury Status: Acute Assessment and plan: Likely due to volume depletion Current Visit: Yes (2) UTI (urinary tract infection) Status: Acute Assessment and plan: Continue empiric antibiotic pending sensitivities Current Visit: Yes Specialty Discharge - Follow Up or Referrals - Speciality Discharge Instructions Nephrology Instructions: Fluids, bicarb, antibiotic
[2017-05-14] MEDS: DOPamine 800 MG/250 ML PREMIX IV SCH ×2 (17:55→19:54)
[2017-05-15] MEDS: SODIUM BICARB INJ 100 MEQ in DEXTROSE 5% 1,000 ML IV SCH ×3 (01:30→10:14)
[2017-05-15] MEDS: AZTREONAM 500 MG in SODIUM CHLORIDE 0.9% 100 ML IV SCH ×2 (01:37→10:23)
[2017-05-15 04:18] LABS: Basophils % 0.1 % (0.0-0.8); Eosinophils # 0.1 10*3/uL (0.0-0.87); Eosinophils % 1.2 % (0.00-10.9); Hematocrit 25.7 VOL% (35.7-47.0); Hemoglobin 8.9 GM/DL (12.0-16.0); Immature Granulocytes % 0.4 %; Immature Granulocytes Absolute 0.03 #; Lymphocytes # 0.6 10*3/uL (1.4-4.0); Lymphocytes % 8.2 % (21.3-54.2); Mean Corpuscular HGB Conc 34.6 GM/DL (32-36); Mean Corpuscular Hemoglobin 28 PG (27-34); Mean Corpuscular Volume 79.6 FL (87-102); Mean Platelet Volume 9.1 FL (9.6-12.0); Monocytes # 1.1 10*3/uL (0.11-0.8); Monocytes % 15.1 % (1.7-12.7); Neutrophils # 5.6 10*3/uL (1.4-7.4); Platelet Count 171 T/CUMM (130-400); Red Blood Count 3.23 MC/CUMM (3.8-5.5); Red Cell Distribution Width 16.5 % (9.3-17.3); White Blood Count 7.5 T/CUMM (4-12)
[2017-05-15] MEDS: LACTULOSE 20 GM/30 ML UDCUP PO SCH ×2 (04:40→13:25)
[2017-05-15 04:50] LABS: Risk Ratio 2.63; VLDL CHOLESTEROL 10.8 MG/DL
[2017-05-15 04:53] LABS: Albumin 2.8 G/DL (3.4-5.0); Bilirubin,Total 0.7 MG/DL (0.2-1.0); Calcium 8.6 MG/DL (8.5-10.1); Magnesium 2.5 MG/DL (1.8-2.4); Potassium 3.4 MMOL/L (3.5-5.1); Total Protein 5.8 G/DL (6.4-8.3)
[2017-05-15 05:19] LABS: 25 Hydroxy Vitamin D Total 23.2 NG/ML; Vitamin B12 > 2000 PG/ML (211-911)
[2017-05-15 05:54] LABS: Hepatitis A Ab IgM Result Negative (Negative); Hepatitis B Core IgM Quant 0.08 Index; Hepatitis B Core IgM Result Negative (Negative); Hepatitis B Surface Ag Quant 0.22 Index; Hepatitis B Surface Ag Result Negative (Negative); Hepatitis C Virus Ab Quant 0.06 Index; Hepatitis C Virus Ab Result Negative (Negative)
[2017-05-15 06:03] LABS: Anisocytosis 1+; Hypochromasia 1+; Ovalocytes 1+; Platelet Estimate Adequate
[2017-05-15] MEDS ORDERED: LEVOTHYROXINE 100 MCG VIAL IV SCH (07:00)
--- NOTE | 2017-05-15 09:00 | Nephrology Progress Note ---
Nephrology - PN: Subj Interval history: Ms. Townsend is seen in follow-up of her acute renal failure due to volume depletion. She is worse today and that she seen diagonal with low oxygen saturations of 88% despite being on a nonrebreather mask. Her creatinine is fallen down to 1.6 and her acidosis is corrected with a measured bicarb of 21. Amylase and lipase remain significantly elevated but the lipase is down from [id number]. She has relatively clear chest with no findings of volume overload on exam. Family members at the bedside and understands that we feel that she is deteriorating despite maximal care. She is a DNR and we will continue to support but not advance care. She is receiving some dopamine and probably will not benefit in the long-term if that is increased. Garfield for survival is poor. Exam (PN)-Nephrology - Vital Signs Vital signs: Period Temp Pulse Resp BP Sys/Martínez Pulse Ox Last 24 Hr 96.7 F-97.7 F 66-117 10-21 77-152/33-108 92-100 - Lab 05/15/17 03:57 05/15/17 03:57 Most recent lab results ABG pH 7.110 (7.35-7.45) L* 05/14/17 11:15 ABG pCO2 29.1 MM HG (35-48) L 05/14/17 11:15 ABG pO2 135.0 MM HG (80-95) H 05/14/17 11:15 ABG HCO3 10.1 MMOL/L (20-26) L 05/14/17 11:15 ABG O2 Saturation 98.3 % (95-100) 05/14/17 11:15 Calcium 8.6 MG/DL (8.5-10.1) 05/15/17 03:57 Phosphorus 4.0 MG/DL (2.5-4.9) 05/15/17 03:57 Magnesium 2.5 MG/DL (1.8-2.4) H 05/15/17 03:57 Assessment and Plan (1) Acute kidney injury Status: Acute Assessment and plan: Likely due to volume depletion Current Visit: Yes (2) UTI (urinary tract infection) Status: Acute Assessment and plan: Continue empiric antibiotic pending sensitivities Current Visit: Yes Specialty Discharge - Follow Up or Referrals
[2017-05-15] MEDS: DESITIN 4OZ/NYSTATIN 15 GRAM MIXTURE PASTE TOP SCH (10:15)
[2017-05-15] MEDS: PANTOPRAZOLE 40 MG VIAL IV SCH (10:23)
--- NOTE | 2017-05-15 10:49 | Hospitalist Progress Note ---
Assessment and Plan (1) Metabolic acidosis Status: Acute Assessment and plan: Yesterday her pH was 7.11 with PCO2 of 29. She has had a consistent anion gap present since admission. She has a positive urine culture for gram-negative rods with evidence of multiorgan dysfunction including abnormal liver profile, elevated ammonia level, with elevated amylase and lipase raising the possibility of visceral hypoperfusion. She has maintained a normal total white count without elevated bands. She has DUCT MAKER depression likely on a metabolic basis given the available imaging studies. Current Visit: Yes Hospitalist: Subjective Interval history: 86-year-old female admitted with encephalopathy associated with positive urine culture for gram-negative rods. The patient demonstrated an anion gap metabolic acidosis at presentation with prominent prerenal changes as well. Following admission the patient continued to do poorly with hypotension requiring transfer to the ICU with pressor support with dopamine blood pressure has stabilized oxygen requirements were minimal until early this morning when she developed agonal respirations. This is unassociated with change in rhythm vital signs per she is a DO NOT RESUSCITATE and has not shown any neurologic improvement since admission high flow oxygen has been administered. Her acidosis has been treated with antibiotics and a bicarbonate drip with this morning CO2 content having risen. Her GFR is improved and BUN and creatinine ratio has improved as well. CT scan of her head yesterday showed chronic changes only. CT scan of her abdomen demonstrated a hypoventilation at the bases a calcified splenic artery aneurysm which appears to be intact with diverticulosis without diverticulitis. This morning the patient demonstrates adequate oxygen saturation on 100% by facemask however respiratory rate has slowed substantially. Tidal volume is diminished likely generating insufficient minute ventilation. Patient's family is in room and wished to continue minimal supportive care with DO NOT RESUSCITATE order maintained. Exam - Constitutional Vitals: Period Temp Pulse Resp BP Sys/Martínez Pulse Ox Last 24 Hr 96.7 F-97.7 F 66-117 10-25 71-152/33-116 58-100 General appearance: normal weight - Respiratory Respiratory exam: Present: other (Very low tidal volume slowed respiratory rate) - Cardiovascular Cardiovascular exam: Present: regular rate and rhythm, systolic murmur (2/6 basilar systolic murmur present) - GI/Abdominal GI/Abdominal exam: Absent: ascites, distended, rebound - Extremities Exam Extremities exam: Absent: edema - Neurological Exam Neurological exam: Absent: alert Results - Labs CBC & BMP: 05/15/17 03:57 05/15/17 03:57 Labs: Albumin 2.8 Specialty Discharge - Follow Up or Referrals
[2017-05-15 13:53] VITALS: BP 58/00
--- NOTE | 2017-05-15 15:01 | Discharge Summary ---
Hospital Course - Hospital Course Hospital Course: 86-year-old female admitted with encephalopathy associated with a positive urine culture for Providencia stuartti, severe anion gap metabolic acidosis with prerenal azotemia. The patient underwent a CT scan of the abdomen which demonstrated hypoventilation at the bases with a calcified but non-ruptured splenic aneurysm diverticulosis without diverticulitis. Patient's laboratory work included abnormal liver profile, elevated ammonia level and elevated amylase and lipase. Strong consideration was given to the possibility of visceral hypoperfusion. As part of a sepsis syndrome. She did develop hypotension and was transferred to intensive care for pressor support. Initially stable the patient had developed a further alteration in mental status associated with marked decrease in minute ventilation. Hypoxia intervening. Family did not wish aggressive resuscitative efforts including intubation and further diagnostic evaluation. Her culture sensitivities did return positive to Azactam which she had been initiated on admission. Patient this date without further resuscitative efforts. Diagnosis - Discharge Diagnosis (1) Metabolic acidosis Status: Acute Specialty Discharge - Follow Up or Referrals Discharge Plan - Discharge Data Disposition: - Discharge Medications Discontinued Levothyroxine Tab [Synthroid Tab] 25 mcg PO DAILY Cyanocobalamin Tab [Vitamin B12 Tab] 500 mcg PO DAILY Promethazine HCl 25 mg PO Q6H PRN PRN Reason: Nausea/Vomiting Lactulose 20 gm PO Q3D Simethicone [Gas Relief] 180 mg PO Q12H PRN PRN Reason: EXCESS GAS Lactobacillus Acidophilus [Probiotic Acidophilus] 3 mg PO DAILY Docusate Sodium 100 mg PO DAILY Benzocaine/Menthol [Chloraseptic Lozenge] 1 lozenge PO Q2H PRN PRN Reason: Sore Throat Ibuprofen [Children's Ibuprofen] 20 ml PO Q6H PRN PRN Reason: Fever, Headache, Mild Pain Aspirin Chew Tab 81 mg PO DAILY Ascorbic Acid 500 mg PO DAILY Cholecalciferol (Vitamin D3) [Vitamin D3] 5,000 unit PO DAILY Ferrous Sulfate Tab [Feosol Original Tab] 325 mg PO DAILY Donepezil HCl 5 mg PO BEDTIME - Follow Up or Referral - Forms/Instructions Instructions: Altered Mental Status (ED) Exam - Constitutional Vitals: Period Temp Pulse Resp BP Sys/Martínez Pulse Ox Last 24 Hr 96.7 F-97.7 F 20-117 10-25 58-152/00-116 50-100 Discharge Results Procedures and tests throughout hospitalization: Pending Orders 05/13/17 22:00 Blood Culture Stat 05/14/17 09:36 Occult Blood, Stool Stat 05/14/17 14:46 MRSA Surveillence, Inf Control Routine 05/16/17 04:00 Ammonia IN AM Labs on day of discharge: Labs from last 24 hours 05/15/17 05/15/17 05/15/17 07:13 03:58 03:57 WBC RBC Hgb Hct MCV MCH MCHC RDW Plt Count MPV Neut % (Auto) Lymph % (Auto) Gem % (Auto) Eos % (Auto) Baso % (Auto) Neut # (Auto) Lymph # (Auto) Gem # (Auto) Eos # (Auto) Baso # (Auto) Immature Gran % Nucleated RBC % Immature Gran # Nucleated RBCs # Platelet Estimate Hypochromasia Anisocytosis Ovalocytes Sodium Potassium Chloride Carbon Dioxide Anion Gap BUN Creatinine GFR Calculation BUN/Creatinine Ratio Glucose Calculated Osmolality Calcium Phosphorus Magnesium Total Bilirubin AST ALT Alkaline Phosphatase Ammonia 48 H Total Protein Albumin Globulin Albumin/Globulin Ratio Triglycerides 54 Cholesterol 108 LDL Cholesterol 53.0 VLDL Cholesterol 10.8 HDL Cholesterol 41 Heart Disease Risk Ratio 2.63 Amylase 559 H Lipase Vitamin B12 25-OH Vitamin D Total Hepatitis A IgM Ab Negative Hep Bs Antigen Negative Hep B Core IgM Ab Negative Hepatitis C Antibody Negative 05/15/17 05/15/17 05/15/17 03:57 03:57 03:57 WBC RBC Hgb Hct MCV MCH MCHC RDW Plt Count MPV Neut % (Auto) Lymph % (Auto) Gem % (Auto) Eos % (Auto) Baso % (Auto) Neut # (Auto) Lymph # (Auto) Gem # (Auto) Eos # (Auto) Baso # (Auto) Immature Gran % Nucleated RBC % Immature Gran # Nucleated RBCs # Platelet Estimate Hypochromasia Anisocytosis Ovalocytes Sodium 143 Potassium 3.4 L Chloride 114 H Carbon Dioxide 21 Anion Gap 11.4 BUN 75 H D Creatinine 1.60 H GFR Calculation 30 BUN/Creatinine Ratio 46.00 H Glucose 108 H Calculated Osmolality 307.0 H Calcium 8.6 Phosphorus 4.0 Magnesium 2.5 H Total Bilirubin 0.70 AST 127 H ALT 405 H Alkaline Phosphatase 190 H Ammonia Total Protein 5.8 L Albumin 2.8 L Globulin 3.0 Albumin/Globulin Ratio 0.9 L Triglycerides Cholesterol LDL Cholesterol VLDL Cholesterol HDL Cholesterol Heart Disease Risk Ratio Amylase Lipase 2276.0 H D Vitamin B12 > 2000 H 25-OH Vitamin D Total 23.2 Hepatitis A IgM Ab Hep Bs Antigen Hep B Core IgM Ab Hepatitis C Antibody 05/15/17 03:57 WBC 7.5 RBC 3.23 L Hgb 8.9 L Hct 25.7 L MCV 79.6 L MCH 28 MCHC 34.6 RDW 16.5 Plt Count 171 D MPV 9.1 L Neut % (Auto) 75.0 H Lymph % (Auto) 8.2 L Gem % (Auto) 15.1 H Eos % (Auto) 1.2 Baso % (Auto) 0.1 Neut # (Auto) 5.6 Lymph # (Auto) 0.6 L Gem # (Auto) 1.1 H Eos # (Auto) 0.1 Baso # (Auto) 0.0 Immature Gran % 0.4 Nucleated RBC % 0.0 Immature Gran # 0.03 Nucleated RBCs # 0.00 Platelet Estimate Adequate Hypochromasia 1+ Anisocytosis 1+ Ovalocytes 1+ Sodium Potassium Chloride Carbon Dioxide Anion Gap BUN Creatinine GFR Calculation BUN/Creatinine Ratio Glucose Calculated Osmolality Calcium Phosphorus Magnesium Total Bilirubin AST ALT Alkaline Phosphatase Ammonia Total Protein Albumin Globulin Albumin/Globulin Ratio Triglycerides Cholesterol LDL Cholesterol VLDL Cholesterol HDL Cholesterol Heart Disease Risk Ratio Amylase Lipase Vitamin B12 25-OH Vitamin D Total Hepatitis A IgM Ab Hep Bs Antigen Hep B Core IgM Ab Hepatitis C Antibody Preliminary micro results at discharge 05/14/17 14:46 MRSA Surveillance Culture - Preliminary Nasal Passage No MRSA isolated. 05/13/17 22:00 Blood Culture - Preliminary Blood No growth at 1 day 05/13/17 18:40 Blood Culture - Preliminary Blood No growth at 1 day DS: Provider Date of admission: 05/13/17 19:43 Primary care physician: Salomon Manuel Attending physician on admission: Carlton Tijerina MD Consults: 05/14/17 09:52 Consult to Occupational Therapy [CONS] Routine Reason for Occupational Therapy: Evaluate and Treat Consult to Physical Therapy [CONS] Routine Reason for Physical Therapy: Evaluate and Treat 05/14/17 14:16 Consult to Physician [CONS] Routine Comment: KELSEY, uremia Consulting Provider: Srini Perez Consulting Provider Notified: Yes Consult to Specialist Group: Nephrology When should Consulting Provider be notified: Now Person Notified: JOSHUA Date Notified: 05/14/17 Time Notified: 15:00 Consult Notification Comment: Joshua called back and instructed us to call Dr Perez Discharging clinician: Alcides Poole MD Expected date of discharge: 05/15/17
[2017-05-15] MEDS: DOPamine 800 MG/250 ML PREMIX IV SCH (15:06)
--- NOTE | 2017-05-18 15:32 | Physician Query Form ---
CLICK EDIT DOCUMENT TO SELECT QUERY ANSWER --> OK --> SIGN Cheri Weaver RN Clinical Survey And Mapping Technician W) [phone] (f) [phone] [email or web address]: Make your selection(s) from the choices in EACH section by typing an "x" and enter comments in the comment section. Please use your independent medical judgment in providing your response. This request does not imply that any particular answer is desired or expected. CLINICAL INDICATORS: (Providers should not edit this section) Based on documentation of "She is a Do Not Resuscitate" "Patient's family is in room and wished to continue minimal supportive care with DO NOT RESUSCITATE order maintained" Was being treated with oxygen at 2L. Based on the above, could you clarify if there has been a change in the plan of care for this patient? ( x) Comfort Measures/Palliative Care ( ) Hospice Care ( ) Current treatment continued without comfort measures/palliative care being initiated ( ) Other, please specify: ( ) Clinically unable to determine COMMENTS: PLEASE ALSO DOCUMENT RESPONSE IN PROGRESS NOTES AND/OR DISCHARGE SUMMARY Use of terms such as suspected, likely, or probable (associated with a specific diagnosis that is being evaluated, monitored, or treated as if it exists) are acceptable and can be restated in the discharge summary if not ruled out. MTDD
--- NOTE | 2017-05-18 15:36 | Physician Query Form ---
CLICK EDIT DOCUMENT TO SELECT QUERY ANSWER --> OK --> SIGN Cheri Weaver RN Clinical Rn Psych W) [phone] (f) [phone] [email or web address]: Make your selection(s) from the choices in EACH section by typing an "x" and enter comments in the comment section. Please use your independent medical judgment in providing your response. This request does not imply that any particular answer is desired or expected. CLINICAL INDICATORS: (Providers should not edit this section) Based on documentation of " low oxygen saturations of 88% despite being on a nonrebreather mask" "she developed agonal respirations" "since admission high flow oxygen has been administered" If possible, please further clarify the type and acuity of respiratory diagnosis : ACUITY: ( ) Acute ( ) Chronic ( x) Acute on Chronic TYPE: ( x) Respiratory failure with hypoxia ( ) Respiratory failure with hypercapnia ( ) Respiratory Arrest ( ) Postprocedural/postoperative respiratory failure ( ) Respiratory Insufficiency ( ) ARDS (Adult/Acute Respiratory Distress Syndrome) ( ) Other, please specify: ( ) Clinically unable to determine Recognized criteria for respiratory failure PH <7.35 or >7.45 PO2 <60 PCO2 >50 RR >24 O2 Sat <90% on RA or <95% on O2 Use of accessory muscles Unable to speak in full sentences Intubation is not required COMMENTS: PLEASE ALSO DOCUMENT RESPONSE IN PROGRESS NOTES AND/OR DISCHARGE SUMMARY Use of terms such as suspected, likely, or probable (associated with a specific diagnosis that is being evaluated, monitored, or treated as if it exists) are acceptable and can be restated in the discharge summary if not ruled out. MTDD
== END 2017-05-15 14:35 | disposition expired | DRG 871 ==
LOC: EDUNIT# → EDBD → N.ED 16:25 → N.EDINP 19:43 → SUATTDRO 19:43 → N.2E 21:10 → N.ICU 05-14 14:34
PROVIDERS: ADMIT Internal Medicine; ATTEND Internal Medicine Cardiovascular Disease